=== PATIENT | male | born 1960 | race Caucasian/White ===

== ENCOUNTER → 2016-04-28 | Outpatient (CLI) | payer OTHER ==
--- NOTE | 2016-04-28 12:47 | NM ---
EXAMINATION TYPE: NM stress cardiolite complete DATE OF EXAM: 04/28/2016 11:10 AM COMPARISON: NONE HISTORY: Chest pain TECHNIQUE: After the intravenous administration of 10.93 mCi Tc 99m Sestamibi - Rest images obtained 45 minutes post injection. The patient exercised using a BROOK protocol and 1 minute prior to peak exercise was injected with 26.6 mCi Tc 99m Sestamibi - Stress images obtained 20 minutes post inject ion. FINDINGS: Targeted heart rate was achieved during performance of the study. Review of stress and rest SPECT ruby ges demonstrates no distinct perfusion abnormality. Gated analysis shows normal wall motion with an estimated left ventricular ejection fraction of 69% %. There is diminished radiotracer accumulation along the inferior wall on the SPECT imaging. This can b e related to diaphragm artifact. Polar maps appear normal. IMPRESSION: 1. No fixed or reversible perfusion defects. 2. Normal ejection fraction of 69%. 3. Somewhat artifact is likely present from the diaphragm along the inferior wall.
--- NOTE | 2016-04-28 13:06 | EST ---
DATE OF SERVICE: 04/28/2016 AGE: 55Y SEX: M HT: 6'1" WT: 226 lbs. Protocol Lucio: X Other: Cardiolite Stress Stage: 4 Dur. of Exercise: 11:00 *Heart Rate Blood Pressure *Rest: 85 Rest: 128/76 * *Max. Achieved: 166 Maximum BP: 168/71 85% PMHR: 139 100% PMHR: 163 *METS: 12.1 INDICATIONS: Chest pain. MEDICATIONS: Pravastatin, losartan, Soma. Baseline EKG revealed a sinus mechanism without significant ST-T changes. Patient walked for 11 minutes on standard Lucio protocol, achieved a maximum heart rate of 166 beats per minute, which is well above 85% of predicted maximal. He developed fatigue and shortness of breath, but did not have any angina or arrhythmia. EKG did not reveal any ST segment changes to indicate ischemia. By EKG criteria, this is a negative stress test with excellent exercise capacity. The nuclear scan results, which are more pertinent, will be reported by the radiologist.
== END ==
LOC: RADNMMAIN 09:07
PROVIDERS: ATTEND Family Medicine
DX: R07.9 Chest pain, unspecified (principal)
CPT/HCPCS: 93017; 78452; A9500

== ENCOUNTER → 2016-10-08 | Outpatient (CLI) | payer OTHER ==
[2016-10-08 09:18] LABS: CH 29.9; HCT 44.7 % (39.0-53.0); HDW 2.35; HGB 14.8 gm/dL (13.0-17.5); MCH 30.1 pg (25.0-35.0); MCV 91.1 fL (80.0-100.0); Mean Platelet Volume 6.7; RBC 4.91 m/uL (4.30-5.90); RDW 13.5 % (11.5-15.5); WBC 6.3 k/uL (3.8-10.6)
[2016-10-08 09:45] LABS: ALT 32 U/L (21-72); AST 22 U/L (17-59); Alkaline Phosphatase 100 U/L (38-126); Anion Gap 9 mmol/L; Blood Urea Nitrogen 16 mg/dL (9-20); Calcium 9.3 mg/dL (8.4-10.2); Carbon Dioxide 24 mmol/L (22-30); Chloride 107 mmol/L (98-107); Cholesterol 187 mg/dL (<200); Glucose 88 mg/dL (74-99); HDL Cholesterol 48 mg/dL (40-60); Non-African American GFR(MDRD) >60 (>60 ml/min/1.73 sqM); Potassium 4.6 mmol/L (3.5-5.1); Sodium 140 mmol/L (137-145); Total Bilirubin 0.6 mg/dL (0.2-1.3); Total Protein 6.9 g/dL (6.3-8.2); Triglycerides 108 mg/dL (<150)
[2016-10-08 11:42] LABS: Prostate Specific Antigen 0.64 ng/mL (0.00-4.00)
[2016-10-08 13:35] LABS: Hepatitis C Virus IgG Ab Negative (Negative); Hepatitis C Virus IgG Index 0.03
== END | disposition home or self-care (01) ==
LOC: LABWHC1 08:15
PROVIDERS: ATTEND Family Medicine
DX: E78.2 Mixed hyperlipidemia (principal); M62.81 Muscle weakness (generalized); R68.82 Decreased libido; Z13.9 Encounter for screening, unspecified
CPT/HCPCS: 36415; 80053; 80061; 84153; 84402; 84403; 85027; 86803

== ENCOUNTER → 2017-01-24 | Outpatient (CLI) | payer OTHER ==
--- NOTE | 2017-01-24 07:43 | US ---
EXAMINATION TYPE: US abdomen complete DATE OF EXAM: 01/24/2017 COMPARISON: None CLINICAL HISTORY: 56-year-old male abdominal pain, family history of lung, liver, and renal cancer. R 10.9 Unspecified abdominal pain. TECHNIQUE: Multiple sonographic images of the abdomen were obtained. 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 Liver Length: 19.3 cm Gallbladder Wall: 0.2 cm CBD: 3.6 mm Spleen: 12.2 cm Right Kidney: 10.8 x 5.9 x 5.0 cm Left Kidney: 12.2 x 6.0 x 4.3 cm Pancreas: Obscured by bowel gas Liver: Mildly enlarged with increased echogenicity and far field attenuation. Gallbladder: wnl Evidence for sonographic Rincon's sign: No CBD: partially obscured by bowel gas, limited views Spleen: wnl Right Kidney: No hydronephrosis Left Kidney: No hydronephrosis. There is a benign cyst noted measuring 5.2 x 5.3 x 5.4cm. Upper IVC: wnl Abd Aorta: Partially obscured by overlying bowel gas, portions visualized wnl IMPRESSION: 1. Mild hepatomegaly and [id number] hepatic steatosis. Correlate with LFTs, lipid profile, and patient risk factors. 2. The pancreas is obscured and not assessed. 3. Benign 5.4 cm cyst in the left kidney.
--- NOTE | 2017-01-24 08:30 | XR ---
EXAMINATION TYPE: XR chest 2V DATE OF EXAM: 01/24/2017 COMPARISON: NONE HISTORY: Cough TECHNIQUE: Frontal and lateral views of the chest are obtained. FINDINGS: There is no focal air space opacity, pleural effusion, or pneumothorax seen. The cardiac silhouette size is within normal limits. Prominent lung volume may be indicative of COPD. The osseous structures are intact. IMPRESSION: No acute cardiopulmonary process.
== END | disposition home or self-care (01) ==
LOC: RADUSWWP 06:47
PROVIDERS: ATTEND Family Medicine
DX: R16.0 Hepatomegaly, not elsewhere classified (principal); K76.0 Fatty (change of) liver, not elsewhere classified; N28.1 Cyst of kidney, acquired; R05 Cough
CPT/HCPCS: 71020; 76700

== ENCOUNTER → 2017-04-14 | Outpatient (CLI) | payer OTHER ==
[2017-04-14 09:31] LABS: ALT 44 U/L (21-72); AST 23 U/L (17-59); Cholesterol 258 mg/dL (<200); HDL Cholesterol 58 mg/dL (40-60)
== END | disposition home or self-care (01) ==
LOC: LABWHC1 08:17
PROVIDERS: ATTEND Family Medicine
DX: E78.2 Mixed hyperlipidemia (principal); M62.81 Muscle weakness (generalized)
CPT/HCPCS: 36415; 80061; 84450; 84460

== ENCOUNTER → 2018-04-26 | Outpatient (CLI) | payer OTHER ==
--- NOTE | 2018-04-26 12:27 | CTL ---
EXAMINATION TYPE: CT Low Dose Lung DATE OF EXAM ORDERED: 04/26/2018 HISTORY: Long-term tobacco use. Lung cancer screening CT DLP: [address] CTDI: 2.18 mGy Automated exposure control for dose reduction was used. SCREENING VISIT: Initial study COMPARISON: None TECHNIQUE: Low dose computed tomography scan was performed through the chest at 1 mm thick sections a nd reconstructed images in the coronal plane at [address] DIAGNOSTIC QUALITY: Limited, but interpretable related to patient's body habitus. FINDINGS: LUNG NODULES: Present, detailed below: Punctate 2 mm nodule anterior right upper lobe axial image 66. Incidental calcified 4 mm nodule or granuloma right lower lobe posteriorly axial image 211. No suspicious greater than 4 mm parenchymal nodules or masses are identified bilaterally. LUNGS: COPD: Severity: Minimal Fibrosis: Severity: Mild to moderate bilateral linear. Lymph nodes: None Other findings: None BILATERAL PLEURAL SPACE: Effusion: None Calcification: None Thickening: None Pneumothorax: None HEART: Heart Size: Normal Coronary calcification: Mild to moderate three-vessel. Pericardial effusion: None OTHER FINDINGS: Upper abdomen: Focal calcification left hepatic lobe axial image 52 series 3 presumed benign Bony thorax: Exaggerated thoracic kyphosis with slight scoliotic curvature centered in the upper thor acic spine. Supraclavicular region: Prominence or thickening of thyroid isthmus likely normal variant as thyroid overall does not appear suspiciously enlarged. Other: Small bleb or thin walled cyst right lower lobe series 3 image 28 measuring approximately 1.8 cm IMPRESSION: No suspicious greater than [address] UP [address] CHEST RECOMMENDATION: Annual low-dose lung screening CT CT LUNG RAD: Lung-Rad 2 Benign Appearance or Behavior
== END | disposition home or self-care (01) ==
LOC: RADCTMAIN 10:42
PROVIDERS: ATTEND Family Medicine
DX: Z12.2 Encounter for screening for malignant neoplasm of respiratory organs (principal); Z87.891 Personal history of nicotine dependence

== ENCOUNTER → 2023-08-30 | Outpatient (CLI) | payer MEDICARE, OTHER ==
--- NOTE | 2023-08-30 12:34 | CTL ---
EXAMINATION TYPE: CT Low Dose Lung DATE OF EXAM ORDERED: 08/30/2023 COMPARISON: 05/06/2018 HISTORY: . Low Dose CT Lung Screening CT DLP: 109.[address] CTDI: 3.0 mGy IV CONTRAST USED: None. SCREENING VISIT: Second COMPARISON: None. TECHNIQUE: Low dose computed tomography scan was performed through the chest at 1 millimeter thick se ctions and reconstructed images in the coronal plane at [address] DIAGNOSTIC QUALITY: Satisfactory FINDINGS: LUNG NODULES: Not presentLeft lung: no nodules identified.Right lung: no nodules identified. LUNGS: COPD: Severity: None Fibrosis: Severity:None Lymph nodes: None Other findings: None RIGHT PLEURAL SPACE: Effusion: None Calcification: None Thickening: None Pneumothorax: None LEFT PLEURAL SPACE: Effusion: None Calcification: None Thickening: None Pneumothorax: None HEART: Heart Size: Mildly enlarged Coronary calcification: Mild Pericardial effusion: None OTHER FINDINGS: Upper abdomen: No significant abnormality Bony thorax: Degenerative changes Supraclavicular region: No significant abnormalityOther: No significant abnormalityI IMPRESSION: No suspicious nodularity greater than [address] FOLLOW UP [address] CHEST RECOMMENDATION: Follow-up screening in one year CT LUNG RAD: LUNG RAD CATEGORY 1 negative
--- NOTE | 2023-09-01 09:21 | US ---
EXAMINATION TYPE: US duplex aorta DATE OF EXAM: 08/30/2023 COMPARISON: NONE CLINICAL INDICATION: Male, 63 years old with history of Z13.6 ENCOUNTER FOR CARDIOVASCULAR DISORDERS; Current smoker. Screening. TECHNIQUE: Multiple sonographic images of the abdominal aorta are obtained. 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 Minimal plaque visualized within aorta. IMPRESSION: No evidence for abdominal aortic aneurysm.
== END | disposition home or self-care (01) ==
LOC: RADUSWWP 11:50
PROVIDERS: ATTEND Family Medicine
DX: Z12.2 Encounter for screening for malignant neoplasm of respiratory organs (principal); Z13.6 Encounter for screening for cardiovascular disorders; F17.210 Nicotine dependence, cigarettes, uncomplicated; R91.1 Solitary pulmonary nodule
CPT/HCPCS: 71271; 76706; 93979

== ENCOUNTER → 2024-02-08 | Outpatient (CLI) | payer MEDICARE ==
--- NOTE | 2024-02-08 13:54 | US ---
EXAMINATION TYPE: US kidneys/renal and bladder DATE OF EXAM: 02/08/2024 COMPARISON: Abdominal ultrasound 01/24/2017, CT abdomen and pelvis 05/25/2014 CLINICAL INDICATION: Male, 63 years old with history of D35.02 ADRENAL CYST N28.1 RENAL CYST N20.0; follow up renal cyst TECHNIQUE: Grayscale and color Doppler imaging of the bilateral kidneys and urinary bladder: FINDINGS: EXAM MEASUREMENTS: Right Kidney: 11.3 x 5.6 x 5.8 cm Left Kidney: 11.2 x 5.7 x 6.1 cm Right Kidney: no evidence of hydronephrosis Left Kidney: cystic lesion = 6.4 x 5.8 x 7.3cm. echogenic focus upper pole = 0.7cm Bladder: appears wnl Bilateral Jets seen: no There is no evidence for hydronephrosis at this point in time. Corticomedullary differentiation is ma intained. No nephrolithiasis is seen. No right renal masses. Left upper pole simple 7.3 cm cyst. Demo nstrates a thin wall with no mural nodularity. Nonshadowing subcentimeter echogenic focus within the upper pole of the left kidney. The urinary bladder is anechoic. IMPRESSION: 1. No hydronephrosis. 2. Nonshadowing left renal subcentimeter echogenic focus. Favored to represent a nonobstructive calcu rich. 3. Increased size of 7.3 cm benign left renal cyst. [facility], , 02/08/2024 1:52 PM
== END | disposition home or self-care (01) ==
LOC: RADUSWWP 13:02
PROVIDERS: ATTEND Urology
CPT/HCPCS: 76770

== ENCOUNTER → 2024-02-24 | Outpatient (CLI) | payer MEDICARE ==
--- NOTE | 2024-02-24 09:53 | MR ---
EXAMINATION TYPE: MR abdomen wo/w con DATE OF EXAM: 02/24/2024 7:21 AM INDICATION: Patient age:Male; 63 years old; Reason for study: R19.00 INTRA-ABD AND PELVIC SWELLING M25.562 PAIN; INTERMITTENT LEFT FLANK PAIN. COMPARISON: Renal ultrasound 02/08/2024, abdominal ultrasound 01/24/2017, CT low-dose lung 08/30/2023, 04/26/2022, CT scan of pelvis 05/25/2014 TECHNIQUE: Multiplanar multi-sequence imaging was performed without and with IV contrast. The patien t was given 8 ccs of Gadobutrol intravenously and dynamic imaging was performed. Post IV contrast sub traction images were also submitted for review. FINDINGS: LOWER CHEST: No gross irregularity. ABDOMEN Liver: Few scattered small T2 hyperintense thin-walled nonenhancing cysts. No fatty infiltration. Non cirrhotic morphology. Gallbladder and Bile ducts: Unremarkable. Pancreas: Unremarkable. Spleen: Unremarkable. Adrenal glands: Right adrenal gland is unremarkable. Degenerative gland lesion measuring 3.0 cm. This is T2 hypointense with heterogenous T1 signal with some heterogenous enhancement. This demonstrates heterogenous regions of dropout of signal on out of phase imaging. Demonstrated -9 Hounsfield units o n prior CT low-dose lung. Previously measured 3.[address] abdomen pelvis. Kidneys: No hydronephrosis. Left mid kidney cortical partially exophytic 6.9 cm thin-walled benign no nenhancing cyst corresponding to ultrasound. Stomach and Bowel: Unremarkable as visualized. Peritoneum: No evidence of pneumoperitoneum, free fluid, or adenopathy. Vasculature: Unremarkable. No aortic aneurysm. Abdominal wall: Unremarkable. Musculoskeletal: The osseous structures appear intact. IMPRESSION: 1. No MRI evidence for acute abdominal process. 2. Simple left renal 6.9 cm cyst. 3. Left adrenal 3.0 cm lesion with characteristics most consistent with a benign lipid rich adenoma. Stable size dating back to 2014. [facility], , 02/24/2024 9:50 AM
== END | disposition home or self-care (01) ==
LOC: RADMRIMAIN 06:15
PROVIDERS: ATTEND Urology
DX: D35.02 Benign neoplasm of left adrenal gland (principal); D36.7 Benign neoplasm of other specified sites; N28.1 Cyst of kidney, acquired
CPT/HCPCS: 74183; A9585

== ENCOUNTER → 2024-10-08 | Outpatient (CLI) | payer MEDICARE ==
--- NOTE | 2024-10-08 10:40 | CTL ---
EXAMINATION TYPE: CT Low Dose Lung DATE OF EXAM: 10/08/2024 8:36 AM COMPARISON: 08/30/2023 CLINICAL INDICATION: Male, 64 years old with history of Z12.2 LUNG CA SCR F17.210 CURRENT SMOKER, PAT IENT SMOKES ABOUT A PACK A DAY FOR LAST 53 YRS. STILL SMOKING, History of tobacco use. TECHNIQUE: Low dose computed tomography scan was performed through the chest at 1 mm thick sections a nd reconstructed images in multiple planes at 1 mm and [address] DLP: 90.4 mGycm, CT CTDI: 2.2 mGy, Automated exposure control for dose reduction was used. CT DIAGNOSTIC QUALITY: Satisfactory FINDINGS: Heart normal size without pericardial effusion. Three-vessel coronary artery calcifications are prese nt. Mild atherosclerotic arch calcifications with conventional vessel branching anatomy. No thoracic lymphadenopathy by CT size criteria. Mild emphysematous change. Hyperinflation. No consolidation or pleural effusion. 3 mm left midlung fissural pulmonary nodule is unchanged. Benign calcified granuloma posterior right lung base. Partially visualized large exophytic cyst lateral left kidney measuring up to 7.6 cm. There is a low density nodule left adrenal gland measuring 3.2 cm compatible with a lipid rich adrenal adenoma, unch anged from prior. Calcification inferior left liver lobe probably calcified granuloma. Bones: Accentuated upper thoracic kyphosis with moderate degenerative disc disease. IMPRESSION: 1. LungRADS 2, benign. No new or suspicious pulmonary nodules. 2. COPD with mild emphysema. 3. Three-vessel coronary artery calcifications. 4. A 3.2 cm lipid rich left adrenal adenoma, unchanged from prior. CT LUNG RAD AND CT CHEST RECOMMENDATION: Lung-Rad 2 Benign Appearance or Behavior: Continue annual sc reening with LDCT in 12 months. S Modifier (other clinically significant findings): None [facility], Workstation: [email or web address]GENNARO, 10/08/2024 10:38 AM
== END | disposition home or self-care (01) ==
LOC: RADCTMAIN 08:01
PROVIDERS: ATTEND Family Medicine
DX: Z12.2 Encounter for screening for malignant neoplasm of respiratory organs (principal); F17.210 Nicotine dependence, cigarettes, uncomplicated; J44.9 Chronic obstructive pulmonary disease, unspecified; I25.10 Atherosclerotic heart disease of native coronary artery without angina pectoris; D35.02 Benign neoplasm of left adrenal gland; J43.9 Emphysema, unspecified
CPT/HCPCS: 71271